=== PATIENT | male | born 1965 | race Caucasian/White ===

== ENCOUNTER → 2017-03-08 | Outpatient (CLI) | payer BC ==
[~2017-03-08] MED LIST: ZYRTEC10 M2 PO
== END | disposition home or self-care (01) ==
LOC: CDC 14:03
DX: Z01.810 Encounter for preprocedural cardiovascular examination (principal); K40.90 Unilateral inguinal hernia, without obstruction or gangrene, not specified as recurrent
CPT/HCPCS: 93000

== ENCOUNTER 2017-03-14 05:25 | Day surgery (SDC) | payer BC ==
[~2017-03-14] VITALS: Ht 180.3 cm; Wt 79.4 kg
[2017-03-14 05:43] VITALS: BP 127/74
[2017-03-14] MEDS ORDERED: PERCOCET 5/31 TABLET PO (09:33)
[2017-03-14 10:09] VITALS: BP 140/80
[2017-03-14 10:59] VITALS: BP 110/71
[2017-03-14 11:51] VITALS: BP 122/76
== END 2017-03-14 11:55 | disposition home or self-care (01) ==
LOC: EDBD → SDC
PROC: 0YU50JZ Supplement Right Inguinal Region with Synthetic Substitute, Open Approach (ICD-10-PCS; principal; 2017-03-14)
DX: K40.90 Unilateral inguinal hernia, without obstruction or gangrene, not specified as recurrent (principal); R12 Heartburn; Z82.5 Family history of asthma and other chronic lower respiratory diseases; Z83.3 Family history of diabetes mellitus; Z82.49 Family history of ischemic heart disease and other diseases of the circulatory system; Z80.9 Family history of malignant neoplasm, unspecified; Z91.09 Other allergy status, other than to drugs and biological substances
CPT/HCPCS: C1781; J0690; J2405; J3010

== ENCOUNTER 2018-03-27 15:28 | Emergency (ER) | payer BC ==
[~2018-03-27] VITALS: Ht 180.3 cm; Wt 83.9 kg
[~2018-03-27 15:28] MED LIST changes: +PERCOCET 5/31 TABLET PO
[2018-03-27 16:27] LABS: HEMOGLOBIN 14.6 G/DL (12.5-16.6); MCH 31.4 PG (29.0-34.0); MCHC 34.8 G/DL (30.0-36.0); MCV 90.3 FL (86-99); PLATELET COUNT 220 K/uL (156-360); RBC DIS.WIDTH-CV 12.6 % (11.8-14.6); RBC DIS.WIDTH-SD 41.4 % (39-53); RED BLOOD COUNT 4.65 M/uL (4.00-5.50)
[2018-03-27 16:42] LABS: CHLORIDE 105 mEq/L (99-109); POTASSIUM 4.2 mEq/L (3.7-5.4); SODIUM 141 mEq/L (136-147)
[2018-03-27 16:43] LABS: GLUCOSE 87 mg/dL (70-99)
[2018-03-27 16:47] LABS: GFR ESTIMATE (CALCULATED) > 59 mL/min/ (58.99-99999)
[2018-03-27 16:48] LABS: UREA NITROGEN (BUN) 13 mg/dL (9-23)
[2018-03-27 16:52] LABS: TROP-I INTERPRETATION NEGATIVE; TROPONIN-I 0.01 ng/mL (0.0-0.30)
[2018-03-27 20:05] LABS: TROP-I INTERPRETATION NEGATIVE; TROPONIN-I < 0.01 ng/mL (0.0-0.30)
[2018-03-27 20:26] VITALS: BP 146/80
== END 2018-03-27 20:27 | disposition home or self-care (01) ==
LOC: EME 15:28 → RME 15:28
PROVIDERS: Nurse Practitioner Family
DX: R07.9 Chest pain, unspecified (principal); F41.9 Anxiety disorder, unspecified; K21.9 Gastro-esophageal reflux disease without esophagitis; J45.909 Unspecified asthma, uncomplicated; F32.9 Major depressive disorder, single episode, unspecified; Z87.891 Personal history of nicotine dependence
CPT/HCPCS: 71046; 80048; 84484; 85027; 93005; 99281; 99284